=== PATIENT | female | born 1955 ===

== ENCOUNTER 2025-02-15 05:24 | Day surgery (SDC) | payer OTHER ==
[2025-02-05 10:14] VITALS: BP 148/86
[2025-02-05 11:15] LABS: INR 0.98; PARTIAL THROMBOPLASTIN TIME 23.6 SECONDS (22.0-34.0); PROTHROMBIN TIME 10.7 SECONDS (9.0-11.5)
[2025-02-05 12:28] LABS: ALBUMIN 4.2 gm/dL (3.4-5.0); BILIRUBIN TOTAL 0.51 mg/dL (0.3-1.2); CALCIUM 9.5 mg/dL (8.5-10.1); CREATININE SERUM 0.79 mg/dL (0.55-1.02); GFR 72.59; GLOBULINA 3.4 G/DL (2.4-3.5); POTASSIUM 4.67 mEq/L (3.5-5.1); TOTAL PROTEIN 7.6 gm/dL (6.4-8.2)
[2025-02-05 15:24] LABS: BASO % 0.8 % (0.1-1.2); EOS # 0.27 (0.04-0.54); EOS % 4.1 % (0.7-7.0); HEMATOCRIT 44.6 % (34.1-44.9); HEMOGLOBIN 14.7 g/dL (11.2-15.7); LYMPH # 2.41 (1.18-3.74); LYMPH % 36.8 % (19.3-53.1); MEAN CORPUSCULAR HEMOGLOBIN 30.1 pg (25.6-32.2); MONO # 0.41 (0.24-0.82); MONO % 6.3 % (4.7-12.5); NEUT # 3.36 (1.56-6.13); NEUT % 51.2 % (34.0-71.1); PLATELET COUNT 192 K/uL (163-369); RED BLOOD COUNT 4.88 M/uL (3.93-5.22)
[~2025-02-15] VITALS: Ht 157.5 cm; Wt 64.4 kg
[~2025-02-15 05:24] MED LIST: CRESTOR40 MG PO; NEURONTIN800 MG PO; OMEPRAZOLE-BIC1 EAC1 PO; RELAFEN DS1000 MG
[2025-02-15] MEDS ORDERED: CEFTRIAXONE SODIUM 2,000 MG VIAL ONE (07:45)
[2025-02-15] MEDS ORDERED: METRONIDAZOLE/SODIUM CHLORIDE 500 MG/100 ML PIGGYBACK IV ONE (07:46)
[2025-02-15] MEDS ORDERED: DIBUCAINE 30 GM TUBE ONE (09:46)
[2025-02-15] MEDS ORDERED: BUPIVACAINE HCL/MPF 0.5% 30ML VIAL ONE (09:46)
[2025-02-15] MEDS ORDERED: POVIDONE-IODINE 118 ML BOTT TOP ONE (09:46)
[2025-02-15] MEDS ORDERED: LIDOCAINE HCL 1%/EPINEPHRINE 20ML VIAL IJ ONE (09:47)
[2025-02-15] MEDS ORDERED: HEMOSTATIC MATRIX 1 KIT KIT TOP ONE (09:47)
[2025-02-15] MEDS ORDERED: SUGAMMADEX SODIUM 200 MG/2 ML VIAL IV ONE (10:40)
[2025-02-15] MEDS ORDERED: TAMSULOSIN HCL 0.4 MG CAP PO ONE (10:45)
[2025-02-15] MEDS ORDERED: OXYC1TAB9 PO (10:49)
[2025-02-15] MEDS ORDERED: MORPHINE SULFATE 4 MG/ML VIAL IV ONE (11:45)
== END 2025-02-15 14:00 | disposition home or self-care (01) ==
LOC: CIR.AMB 05:24
PROVIDERS: ATTEND Surgery
DX: K64.2 Third degree hemorrhoids (principal); K64.4 Residual hemorrhoidal skin tags; K62.5 Hemorrhage of anus and rectum